=== PATIENT | male | born 1960 | race Caucasian/White ===

== ENCOUNTER 2023-07-14 00:20 | Emergency (ER) | payer BC ==
[~2023-07-14] VITALS: Ht 167.6 cm; Wt 95.3 kg
[2023-07-14 00:20] VITALS: BP 120/87; PULSE 102; RESP 17; TEMP 98.4; O2SAT 96
[2023-07-14 00:35] VITALS: BP 120/87; PULSE 102; RESP 17; TEMP 98.4; O2SAT 96
== END 2023-07-14 00:50 ==
LOC: MED 00:20
DX: Z02.89 Encounter for other administrative examinations (principal); V49.88XA Car occupant (driver) (passenger) injured in other specified transport accidents, initial encounter; Y93.89 Activity, other specified; Y92.89 Other specified places as the place of occurrence of the external cause; Y99.8 Other external cause status
CPT/HCPCS: 99283